=== PATIENT | male | born 1950 | race Caucasian/White ===

== ENCOUNTER 2024-03-04 13:34 | Observation (INO) ==
[2024-03-04 15:00] LABS: ABS Eosinophils 0.2 10^3/uL (0.0-0.5); ABS Monocytes 0.7 10^3/uL (0.0-1.1); ABS Neutrophils 4.2 10^3/uL (1.5-7.6); Eosinophil % 3.7 %; Hematocrit 39.5 % (38-53); Hemoglobin 13.3 g/dL (13.2-16.3); Lymphocyte % 16.1 %; Mean Corpuscular Hemoglobin 33.4 pg (27-33); Mean Corpuscular Hgb Conc 33.6 g/dL (31-36); Mean Corpuscular Volume 99.3 fL (80-97); Mean Platelet Volume 7.5 fL (7.5-11.2); Platelet Count 210 10^3/uL (150-450); Red Blood Count 3.98 10^6/uL (4.06-5.63); Red Cell Distribution Width 13.2 % (12-17); White Blood Count 6.2 10^3/uL (3.6-10.2)
[2024-03-04 15:23] LABS: High Sens Troponin Baseline 4 pg/mL (<20)
[2024-03-04 15:36] LABS: INR 1.08 (0.85-1.14)
[2024-03-04 15:55] LABS: ALT 36 U/L (7-52); Albumin 4.1 g/dL (3.2-5.2); Albumin/Globulin Ratio 1.6 (1-3); Alkaline Phosphatase 56 U/L (35-149); Anion Gap 5 mmol/L (2-16); Blood Urea Nitrogen 19 mg/dL (6-24); CO2 Carbon Dioxide 26 mmol/L (22-32); Calcium 8.6 mg/dL (8.6-10.3); Chloride 103 mmol/L (101-111); Creatinine, Serum 0.78 mg/dL (0.67-1.17); Globulin 2.6 g/dL (2-4); Glucose 101 mg/dL (70-100); Sodium 134 mmol/L (135-145); Total Bilirubin 0.7 mg/dL (0.2-1.0); Total Protein 6.7 g/dL (6.4-8.9)
[2024-03-04 16:23] LABS: High Sensitivity Troponin 1 Hr 7 pg/mL (<20)
[2024-03-04] MEDS: Iohexol 350 (CONTRAST) 500 ML MDV IV ONE (17:10)
[2024-03-04] MEDS ORDERED: Sulfur Hexaflouride MICROSPHR 25 MG VIAL IV PRN (19:38)
[2024-03-04 20:56] LABS: C Reactive Protein < 1.00 mg/L (<8.01); Creatine Kinase 768 U/L (10-223)
[2024-03-04 21:41] LABS: Potassium Redraw 3.6 mmol/L (3.5-5.0)
[2024-03-04] MEDS: Potassium Chlor 20 meq TAB.ER PO ONE (22:24)
[2024-03-05 06:18] LABS: ABS Eosinophils 0.3 10^3/uL (0.0-0.5); ABS Monocytes 0.8 10^3/uL (0.0-1.1); ABS Neutrophils 3.8 10^3/uL (1.5-7.6); Eosinophil % 4.3 %; Hematocrit 40.4 % (38-53); Hemoglobin 13.8 g/dL (13.2-16.3); Lymphocyte % 17.4 %; Mean Corpuscular Hemoglobin 33.7 pg (27-33); Mean Platelet Volume 7.4 fL (7.5-11.2); Platelet Count 202 10^3/uL (150-450); Red Blood Count 4.08 10^6/uL (4.06-5.63); Red Cell Distribution Width 13.4 % (12-17); White Blood Count 5.9 10^3/uL (3.6-10.2)
[2024-03-05 06:49] LABS: Albumin 3.7 g/dL (3.2-5.2); Albumin/Globulin Ratio 1.5 (1-3); Calcium 8.9 mg/dL (8.6-10.3); Creatinine, Serum 0.77 mg/dL (0.67-1.17); Globulin 2.4 g/dL (2-4); Magnesium 2.1 mg/dL (1.9-2.7); Potassium 4.2 mmol/L (3.5-5.0); Total Protein 6.1 g/dL (6.4-8.9); eGFR CKD-EPI 93.4 (>60)
[2024-03-05 08:29] LABS: TSH Ultra Thyroid Stim Horm 1.35 mcIU/mL (0.34-5.60)
[2024-03-05 08:40] LABS: Folate 12.02 ng/mL (5.90-24.80)
[2024-03-05] MEDS: LEVETIRACETAM 750 MG PO SCH (09:10)
[2024-03-05 14:46] VITALS: BP 99/75
[2024-03-05] MEDS ORDERED: Enoxaparin 40 MG/0.4 ML SYR SUBCUT SCH (20:00)
== END 2024-03-05 15:05 | disposition home or self-care (01) ==
LOC: EDHOLD 13:34 → ED 13:34 → SUATTDRO 19:29 → MEDTELE 22:52
PROVIDERS: ADMIT Internal Medicine; ATTEND Student in an Organized Health Care Education/Training Program